=== PATIENT | male | born 1940 | race Caucasian/White ===

== ENCOUNTER → 2016-10-16 | Outpatient (CLI) | payer MEDICARE | END | disposition home or self-care (01) | LOC: CVU 12:52 | PROVIDERS: ATTEND Family Medicine | DX: I74.8 Embolism and thrombosis of other arteries (principal); M79.662 Pain in left lower leg; M79.661 Pain in right lower leg; Z85.51 Personal history of malignant neoplasm of bladder; Z95.5 Presence of coronary angioplasty implant and graft | CPT/HCPCS: 93922; 93925 ==

== ENCOUNTER 2016-10-30 21:37 | Inpatient (IN) | payer MEDICARE ==
[~2016-10-30] VITALS: Ht 175.3 cm; Wt 77.3 kg
[2016-10-30 22:31] LABS: BLOOD UREA NITROGEN 32 mg/dL (7-18)
[2016-10-30] MEDS ORDERED: NITROGLYCERIN SINGLE TAB 0.4 MG SL ONE (22:37)
[2016-10-30 22:38] LABS: IS PT STATUS REG ER OR PRE ER? YES
[2016-10-30] MEDS ORDERED: KYOLIC GARLIC (23:00)
[2016-10-30] MEDS ORDERED: LEVO112T2 PO (23:00)
[2016-10-30] MEDS ORDERED: GINKO (23:00)
[2016-10-30] MEDS ORDERED: RED600CA2 PO (23:00)
[2016-10-30] MEDS ORDERED: [UNRECOGNIZED DRUG - OTHER] (23:00)
[2016-10-30] MEDS ORDERED: ARGI500C PO (23:00)
[2016-10-30] MEDS ORDERED: [UNRECOGNIZED DRUG - OTHER] (23:00)
[2016-10-30] MEDS ORDERED: [UNRECOGNIZED DRUG - OTHER] (23:00)
[2016-10-30] MEDS ORDERED: ASPI-496 PO (23:00)
[2016-10-31] VITALS (7 sets, daily range): BP systolic 142–181; BP diastolic 75–95
[2016-10-31] MEDS ORDERED: MORPHINE SULFATE 4 MG/ML, 1ML IVPush PRN
[2016-10-31] MEDS ORDERED: morphine SULFATE 10 MG/ML, 1ML IVPush PRN (00:30)
[2016-10-31] MEDS ORDERED: NITROGLYCERIN 0.4 MG BOTTLE (25 TABS) SL PRN (00:30)
[2016-10-31] MEDS ORDERED: ONDANSETRON 2MG/ML, 2ML IVPush PRN ×2 (00:30)
[2016-10-31] MEDS: ENOXAPARIN 40 MG/0.4 ML SQ SCH ×2 (01:26→22:59)
[2016-10-31] MEDS: LEVOTHYROXINE 112 MCG TABLET PO SCH (05:26)
[2016-10-31 06:08] LABS: IS PT STATUS REG ER OR PRE ER? NO
[2016-10-31] MEDS: ARGININE 500 MG HOMEMEDPO SCH (09:00)
[2016-10-31] MEDS ORDERED: TEMPLATE NON-FORMULARY MED. (Red Yeast Rice** 600 MG) PO SCH (09:00)
[2016-10-31] MEDS: ASPIRIN 81 MG TABLET EC PO SCH (09:20)
[2016-10-31] MEDS: SODIUM CHLORIDE FLUSH 3ML SYRINGE IVF SCH ×2 (09:21→21:00)
[2016-10-31] MEDS: SODIUM CHLORIDE 0.9% 1,000 ML IV SCH ×2 (09:25→20:00)
[2016-10-31] MEDS ORDERED: DIPHENHYDRAMINE 50 MG/ML, 1ML IVPush ONE (10:30)
[2016-10-31] MEDS ORDERED: methylPREDNISolone SOD SUCC 125 MG/2 ML IVPush ONE (10:30)
[2016-10-31 11:32] LABS: IS PT STATUS REG ER OR PRE ER? NO
[2016-10-31] MEDS ORDERED: FENTANYL PF 100 MCG/2ML ONE (15:10)
[2016-10-31] MEDS ORDERED: HEPARIN 1,000 UNITS/ML, 10ML ONE (15:11)
[2016-10-31] MEDS ORDERED: MIDAZOLAM 1 MG/ML, 5ML ONE (15:11)
[2016-10-31] MEDS ORDERED: VERAPAMIL 2.5 MG/ML, 2ML ONE (15:11)
[2016-10-31] MEDS ORDERED: BIVALIRUDIN 250 MG ONE (15:11)
[2016-10-31] MEDS ORDERED: LIDOCAINE 2%, 20ML ONE (15:11)
[2016-10-31] MEDS ORDERED: TICAGRELOR 90 MG TABLET ONE (15:11)
[2016-10-31] MEDS ORDERED: methylPREDNISolone SOD SUCC 125 MG/2 ML ONE (15:17)
[2016-10-31] MEDS ORDERED: DIPHENHYDRAMINE 50 MG/ML, 1ML ONE (15:17)
[2016-10-31] MEDS ORDERED: ONDANSETRON 2MG/ML, 2ML ONE (15:37)
[2016-11-01 01:43] VITALS: BP 140/84
[2016-11-01] MEDS: SODIUM CHLORIDE 0.9% 1,000 ML IV SCH (05:13)
[2016-11-01] MEDS: LEVOTHYROXINE 112 MCG TABLET PO SCH (05:13)
[2016-11-01 05:49] LABS: BLOOD UREA NITROGEN 20 mg/dL (7-18)
[2016-11-01] MEDS: ASPIRIN 81 MG TABLET EC PO SCH (08:43)
[2016-11-01] MEDS: SODIUM CHLORIDE FLUSH 3ML SYRINGE IVF SCH (08:43)
[2016-11-01] MEDS: ARGININE 500 MG HOMEMEDPO SCH (08:43)
[2016-11-01 08:52] VITALS: BP 155/77
[2016-11-01] MEDS ORDERED: TICAGRELOR 90 MG TABLET PO SCH (11:00)
[2016-11-01] MEDS ORDERED: NITR0.4T SL (11:00)
[2016-11-01] MEDS ORDERED: TICA90TA PO (11:00)
== END 2016-11-01 12:49 | disposition home or self-care (01) | DRG 246 ==
LOC: ED 22:12 → EDIP 23:31 → 5SO 10-31 00:39
PROC: 027034Z Dilation of Coronary Artery, One Artery with Drug-eluting Intraluminal Device, Percutaneous Approach (ICD-10-PCS; principal; 2016-10-30)
PROC: 4A023N7 Measurement of Cardiac Sampling and Pressure, Left Heart, Percutaneous Approach (ICD-10-PCS; 2016-10-30)
PROC: B2111ZZ Fluoroscopy of Multiple Coronary Arteries using Low Osmolar Contrast (ICD-10-PCS; 2016-10-30)
DX: I24.9 Acute ischemic heart disease, unspecified (principal); I21.4 Non-ST elevation (NSTEMI) myocardial infarction; I25.10 Atherosclerotic heart disease of native coronary artery without angina pectoris; E78.5 Hyperlipidemia, unspecified; E89.0 Postprocedural hypothyroidism; I10 Essential (primary) hypertension; I73.9 Peripheral vascular disease, unspecified; Y83.8 Other surgical procedures as the cause of abnormal reaction of the patient, or of later complication, without mention of misadventure at the time of the procedure; Z79.82 Long term (current) use of aspirin; I25.2 Old myocardial infarction; Z82.3 Family history of stroke; Z90.49 Acquired absence of other specified parts of digestive tract; Z85.51 Personal history of malignant neoplasm of bladder; Z88.8 Allergy status to other drugs, medicaments and biological substances
CPT/HCPCS: 36415; 71010; 80048; 80061; 82040; 83036; 83880; 84443; 84484; 85025; 85610; 93005; 93306; 93458; 99285; C1894; C9600; J0583; J1644; J1650; J2250; J2405; J3010; J3490; C1725; C1769; C1874; C1887; J1200; J2270; J2930; J7030; Q9967

== ENCOUNTER 2016-11-03 18:58 | Inpatient (IN) | payer MEDICARE ==
[~2016-11-03] VITALS: Ht 175.3 cm; Wt 75.6 kg
[~2016-11-03 18:58] MED LIST: ARGI500C PO; ASPI-496 PO; GINKO; KYOLIC GARLIC; LEVO112T2 PO; NITR0.4T SL; RED600CA2 PO; TICA90TA PO; [UNRECOGNIZED DRUG - OTHER]; [UNRECOGNIZED DRUG - OTHER]; [UNRECOGNIZED DRUG - OTHER]
[2016-11-03] MEDS ORDERED: SODIUM CHLORIDE 0.9% 1,000 ML IV ONE (19:09)
[2016-11-03] MEDS ORDERED: SODIUM CHLORIDE FLUSH 10ML SYR IVF ONE (19:30)
[2016-11-03] MEDS ORDERED: ASPIRIN 81 MG TABLET CHEW PO ONE (19:30)
[2016-11-03] MEDS ORDERED: ASPIRIN 81 MG TABLET CHEW ONE (19:33)
[2016-11-03 19:51] LABS: BLOOD UREA NITROGEN 25 mg/dL (7-18)
[2016-11-03 19:58] LABS: IS PT STATUS REG ER OR PRE ER? YES
[2016-11-03 22:45] LABS: IS PT STATUS REG ER OR PRE ER? NO
[2016-11-03] MEDS ORDERED: KETOROLAC 60 MG/2 ML IVPush ONE (23:30)
[2016-11-04] MEDS ORDERED: ACETAMINOPHEN 325 MG TABLET PO PRN
[2016-11-04] MEDS ORDERED: NITROGLYCERIN 0.4 MG BOTTLE (25 TABS) SL PRN
[2016-11-04] MEDS ORDERED: BISACODYL 10 MG SUPP PR PRN
[2016-11-04] MEDS ORDERED: DOCUSATE 100 MG CAPSULE PO PRN
[2016-11-04] MEDS ORDERED: ENOXAPARIN 40 MG/0.4 ML SQ SCH
[2016-11-04] MEDS ORDERED: CLOPIDOGREL 75 MG TABLET PO ONE
[2016-11-04] MEDS ORDERED: KETOROLAC 30 MG/1 ML IVPush PRN
[2016-11-04] MEDS ORDERED: POLYETHYLENE GLYCOL 17 GM PACKET PO PRN
[2016-11-04] MEDS ORDERED: ONDANSETRON 2MG/ML, 2ML IVPush PRN
[2016-11-04] MEDS ORDERED: KETOROLAC 30 MG/1 ML ONE (00:04)
[2016-11-04] MEDS ORDERED: CLOP75TA22 PO (00:13)
[2016-11-04 01:11] VITALS: BP 178/94
[2016-11-04 03:59] VITALS: BP 163/84
[2016-11-04] MEDS ORDERED: NEBIVOLOL HCL 5 MG TABLET PO STA (05:07)
[2016-11-04 05:45] LABS: IS PT STATUS REG ER OR PRE ER? NO
[2016-11-04] MEDS: LEVOTHYROXINE 112 MCG TABLET PO SCH (05:52)
[2016-11-04 06:31] VITALS: BP 158/87
[2016-11-04] MEDS ORDERED: CLON0.5T20 PO (07:01)
[2016-11-04] MEDS ORDERED: NEBI5TAB2 PO (07:56)
[2016-11-04] MEDS ORDERED: SODIUM CHLORIDE 0.9% 1,000 ML IV SCH ×2 (08:07→14:52)
[2016-11-04] MEDS: SODIUM CHLORIDE FLUSH 3ML SYRINGE IVF SCH ×2 (09:00→21:00)
[2016-11-04] MEDS ORDERED: CLOPIDOGREL 75 MG TABLET PO SCH ×2 (09:00→21:00)
[2016-11-04] MEDS: ASPIRIN 81 MG TABLET EC PO SCH (09:18)
[2016-11-04 11:20] LABS: IS PT STATUS REG ER OR PRE ER? NO
[2016-11-04 13:08] VITALS: BP 173/90
[2016-11-04] MEDS ORDERED: FENTANYL PF 100 MCG/2ML ONE (14:24)
[2016-11-04] MEDS ORDERED: HEPARIN 1,000 UNITS/ML, 10ML ONE (14:24)
[2016-11-04] MEDS ORDERED: BIVALIRUDIN 250 MG ONE (14:24)
[2016-11-04] MEDS ORDERED: VERAPAMIL 2.5 MG/ML, 2ML ONE (14:24)
[2016-11-04] MEDS ORDERED: LIDOCAINE 2%, 20ML ONE (14:24)
[2016-11-04] MEDS ORDERED: MIDAZOLAM 1 MG/ML, 5ML ONE (14:24)
[2016-11-04] MEDS ORDERED: methylPREDNISolone SOD SUCC 125 MG/2 ML ONE (14:25)
[2016-11-04] MEDS ORDERED: DIPHENHYDRAMINE 50 MG/ML, 1ML ONE (14:25)
[2016-11-04 19:47] VITALS: BP 161/89
[2016-11-05 06:06] VITALS: BP 151/84
[2016-11-05] MEDS: LEVOTHYROXINE 112 MCG TABLET PO SCH (06:09)
[2016-11-05] MEDS: ASPIRIN 81 MG TABLET EC PO SCH (08:11)
[2016-11-05] MEDS: SODIUM CHLORIDE FLUSH 3ML SYRINGE IVF SCH (08:11)
== END 2016-11-05 10:36 | disposition home or self-care (01) | DRG 287 ==
LOC: ED 23:17 → INTOOBSV 23:18 → EDIP 23:18 → ED 23:34 → 5SO 11-04 00:59 → OBSVTOIN 11-04 15:35
PROVIDERS: ADMIT Internal Medicine; ATTEND Internal Medicine
PROC: 4A023N7 Measurement of Cardiac Sampling and Pressure, Left Heart, Percutaneous Approach (ICD-10-PCS; principal; 2016-11-04)
PROC: B2111ZZ Fluoroscopy of Multiple Coronary Arteries using Low Osmolar Contrast (ICD-10-PCS; 2016-11-04)
PROC: B2151ZZ Fluoroscopy of Left Heart using Low Osmolar Contrast (ICD-10-PCS; 2016-11-04)
DX: I25.10 Atherosclerotic heart disease of native coronary artery without angina pectoris (principal); R07.89 Other chest pain; I10 Essential (primary) hypertension; I73.9 Peripheral vascular disease, unspecified; I25.82 Chronic total occlusion of coronary artery; E89.0 Postprocedural hypothyroidism; E78.5 Hyperlipidemia, unspecified; Z85.51 Personal history of malignant neoplasm of bladder; I25.2 Old myocardial infarction; Z95.5 Presence of coronary angioplasty implant and graft; Z82.3 Family history of stroke; Z87.891 Personal history of nicotine dependence; Z85.46 Personal history of malignant neoplasm of prostate
CPT/HCPCS: 36415; 71010; 80048; 82040; 83880; 84484; 85025; 93005; 93306; 93458; 96361; 96374; C1894; G0378; J0583; J1644; J1650; J1885; J2250; J3010; J3490; J1200; J2930; J7030; Q9967

== ENCOUNTER → 2016-11-25 | Outpatient (CLI) | payer MEDICARE ==
[~2016-11-25] MED LIST changes: +CLON0.5T20 PO; +CLOP75TA22 PO; +NEBI5TAB2 PO
== END | disposition home or self-care (01) ==
LOC: RAD 15:13
PROVIDERS: ATTEND Family Medicine
DX: R07.9 Chest pain, unspecified (principal)
CPT/HCPCS: 71020

== ENCOUNTER → 2016-12-04 | Outpatient (CLI) | payer MEDICARE | END | disposition home or self-care (01) | LOC: LAB 08:56 | PROVIDERS: ATTEND Family Medicine | DX: E03.9 Hypothyroidism, unspecified (principal) | CPT/HCPCS: 36415; 84436; 84443 ==

== ENCOUNTER → 2017-01-02 | Outpatient (CLI) | payer MEDICARE | END | disposition home or self-care (01) | LOC: LAB 09:18 | PROVIDERS: ATTEND Family Medicine | DX: E03.9 Hypothyroidism, unspecified (principal); E78.2 Mixed hyperlipidemia; I10 Essential (primary) hypertension; I25.10 Atherosclerotic heart disease of native coronary artery without angina pectoris | CPT/HCPCS: 36415; 80061; 80076; 84436; 84443 ==

== ENCOUNTER → 2017-01-07 | Outpatient (CLI) | payer MEDICARE ==
[2017-01-07 16:46] LABS: ASPARTATE AMINO TRANSFERASE 30 U/L (15-37); BLOOD UREA NITROGEN 24 mg/dL (7-18)
== END | disposition home or self-care (01) ==
LOC: LAB 16:01
PROVIDERS: ATTEND Family Medicine
DX: I10 Essential (primary) hypertension (principal)
CPT/HCPCS: 36415; 80053; 85025

== ENCOUNTER → 2017-01-22 | Outpatient (CLI) | payer MEDICARE | END | disposition home or self-care (01) | LOC: CVU 08:28 | PROVIDERS: ATTEND Family Medicine | DX: N28.1 Cyst of kidney, acquired (principal); I77.819 Aortic ectasia, unspecified site; I10 Essential (primary) hypertension; E78.5 Hyperlipidemia, unspecified; I73.9 Peripheral vascular disease, unspecified | CPT/HCPCS: 93975 ==

== ENCOUNTER → 2017-05-19 | Outpatient (CLI) | payer MEDICARE ==
[~2017-05-19] MED LIST changes: -ARGI500C PO; +ARGI500C7 PO; -CLOP75TA22 PO; +CLOP75TA52 PO; +OMNIPAQUE 350 MG/ML, 100ML BOTTLE ONE
== END | disposition home or self-care (01) ==
LOC: RAD 12:29
PROVIDERS: ATTEND Family Medicine
DX: C67.9 Malignant neoplasm of bladder, unspecified (principal); J84.10 Pulmonary fibrosis, unspecified; K76.89 Other specified diseases of liver; N13.39 Other hydronephrosis; I72.3 Aneurysm of iliac artery; M47.896 Other spondylosis, lumbar region; M51.36 Other intervertebral disc degeneration, lumbar region; I70.0 Atherosclerosis of aorta; N28.1 Cyst of kidney, acquired; D73.89 Other diseases of spleen
CPT/HCPCS: 36415; 74177; 82565; 84436; 84443; Q9967

== ENCOUNTER → 2017-07-06 | Outpatient (CLI) | payer MEDICARE ==
[~2017-07-06] MED LIST changes: -OMNIPAQUE 350 MG/ML, 100ML BOTTLE ONE
== END | disposition home or self-care (01) ==
LOC: CVU 13:10
PROVIDERS: ATTEND Internal Medicine Cardiovascular Disease
DX: I70.203 Unspecified atherosclerosis of native arteries of extremities, bilateral legs (principal); I25.10 Atherosclerotic heart disease of native coronary artery without angina pectoris; I10 Essential (primary) hypertension; C67.9 Malignant neoplasm of bladder, unspecified
CPT/HCPCS: 93922; 93925

== ENCOUNTER → 2017-09-02 | Outpatient (CLI) | payer MEDICARE | LOC: RAD 16:15 | PROVIDERS: ATTEND Urology | DX: N13.30 Unspecified hydronephrosis (principal); I31.3 Pericardial effusion (noninflammatory); C67.2 Malignant neoplasm of lateral wall of bladder | CPT/HCPCS: 74176 ==

== ENCOUNTER → 2017-09-14 | Outpatient (CLI) | payer MEDICARE | END | disposition home or self-care (01) | LOC: CFH 10:26 | PROVIDERS: ATTEND Family Medicine | DX: N13.30 Unspecified hydronephrosis (principal); C67.2 Malignant neoplasm of lateral wall of bladder | CPT/HCPCS: 76770 ==

== ENCOUNTER 2017-11-10 22:36 | Emergency (ER) | payer MEDICARE ==
[~2017-11-10] VITALS: Ht 175.3 cm; Wt 65.3 kg
[2017-11-10] MEDS ORDERED: SODIUM CHLORIDE FLUSH 10ML SYR IVF ONE (23:00)
[2017-11-10] MEDS ORDERED: ASPIRIN 81 MG TABLET CHEW PO ONE (23:00)
[2017-11-10 23:16] LABS: BASOPHILS # (AUTO) 0.01 x10^3/uL (0-0.1); BASOPHILS % (AUTO) 0 % (0-1); EOSINOPHILS # (AUTO) 0.81 x10^3/uL (0-0.4); EOSINOPHILS % (AUTO) 9 % (1-7); LYMPHOCYTES # (AUTO) 1.13 x10^3/uL (1-3.4); LYMPHOCYTES % (AUTO) 13 % (22-44); MD NO; MEAN CORPUSCULAR HEMOGLOBIN 32.7 pg (27.5-34.5); MEAN CORPUSCULAR HGB CONC 34.2 g/dL (33.2-36.2); MEAN CORPUSCULAR VOLUME 95.6 fL (81-97); MEAN PLATELET VOLUME 7.5 fL (7.4-10.4); MONOCYTES # (AUTO) 0.98 x10^3/uL (0.2-0.8); MONOCYTES % (AUTO) 11 % (2-9); NEUTROPHILS % (AUTO) 66 % (42-75); PLATELET COUNT 341 x10^3/uL (130-400); RED BLOOD COUNT 3.08 x10^6/uL (4.38-5.82); RED CELL DISTRIBUTION WIDTH 12.4 % (9.4-14.8)
[2017-11-10] MEDS ORDERED: ASPIRIN 81 MG TABLET CHEW ONE (23:27)
[2017-11-10 23:29] LABS: ALBUMIN 3.1 g/dL (3.4-5.0); ANION GAP 6 mmol/L (5-15); CALCIUM 8.8 mg/dL (8.5-10.1); CHLORIDE 104 mmol/L (98-107); CREATININE 2.11 mg/dL (0.7-1.3)
[2017-11-10 23:33] LABS: TROPONIN I < 0.015 ng/mL (0.000-0.045)
[2017-11-11 00:08] VITALS: BP 146/62
== END 2017-11-11 00:10 | disposition home or self-care (01) ==
LOC: ED 23:00
DX: R07.89 Other chest pain (principal); D64.9 Anemia, unspecified; R94.4 Abnormal results of kidney function studies; I25.10 Atherosclerotic heart disease of native coronary artery without angina pectoris; I25.2 Old myocardial infarction; I73.9 Peripheral vascular disease, unspecified; I11.9 Hypertensive heart disease without heart failure; Z95.5 Presence of coronary angioplasty implant and graft; Z85.46 Personal history of malignant neoplasm of prostate; Z85.51 Personal history of malignant neoplasm of bladder
CPT/HCPCS: 36415; 71045; 80048; 82040; 83880; 84484; 85025; 93005; 99285

== ENCOUNTER 2017-12-02 10:08 | Day surgery (SDC) | payer MEDICARE ==
[~2017-12-02] VITALS: Ht 175.3 cm; Wt 63.9 kg
[2017-12-02] MEDS ORDERED: SODIUM CHLORIDE 0.9% 1,000 ML IV SCH (10:53)
[2017-12-02 10:54] VITALS: BP 159/87
[2017-12-02] MEDS ORDERED: FENTANYL PF 100 MCG/2ML ONE (11:22)
[2017-12-02] MEDS ORDERED: FLUMAZENIL 0.1 MG/1 ML, 5ML ONE (11:22)
[2017-12-02] MEDS ORDERED: MIDAZOLAM 1 MG/ML, 5ML ONE (11:22)
[2017-12-02] MEDS ORDERED: NALOXONE 1 MG/ML, 2ML ONE (11:22)
[2017-12-02] MEDS ORDERED: LIDOCAINE-MPF 2% ,5ML ONE (12:32)
== END 2017-12-02 14:45 | disposition home or self-care (01) ==
LOC: OUT 10:08
PROVIDERS: ATTEND Urology
DX: C61 Malignant neoplasm of prostate (principal); C67.9 Malignant neoplasm of bladder, unspecified; N13.5 Crossing vessel and stricture of ureter without hydronephrosis; Z87.440 Personal history of urinary (tract) infections; Z87.891 Personal history of nicotine dependence; Z88.6 Allergy status to analgesic agent; Z98.890 Other specified postprocedural states; I10 Essential (primary) hypertension; Z88.8 Allergy status to other drugs, medicaments and biological substances
CPT/HCPCS: 50435; 99156; 99157; C1729; C1769; J2250; J3010; J3490; J7030; J2310

== ENCOUNTER 2017-12-18 23:45 | Emergency (ER) | payer MEDICARE ==
[~2017-12-18] VITALS: Ht 175.3 cm; Wt 66.0 kg
[2017-12-18 23:49] VITALS: BP 207/110
[2017-12-19 01:08] LABS: CULTURE INDICATED? YES; MICROSCOPIC INDICATED
[2017-12-19] MEDS ORDERED: CEFTRIAXONE 1,000 MG IM ONE (01:30)
[2017-12-19] MEDS ORDERED: CEFTRIAXONE 1,000 MG ONE (01:33)
[2017-12-19] MEDS ORDERED: LIDOCAINE-MPF 2% ,5ML ONE (01:34)
== END 2017-12-19 01:49 | disposition home or self-care (01) ==
LOC: ED 12-19 01:05
DX: N30.01 Acute cystitis with hematuria (principal); I25.10 Atherosclerotic heart disease of native coronary artery without angina pectoris; I10 Essential (primary) hypertension; C79.82 Secondary malignant neoplasm of genital organs; C67.9 Malignant neoplasm of bladder, unspecified
CPT/HCPCS: 81001; 87077; 87086; 87186; 96372; 99284; J0696

== ENCOUNTER 2018-01-18 12:30 | Day surgery (SDC) | payer MEDICARE ==
[~2018-01-18] VITALS: Ht 175.3 cm; Wt 65.0 kg
[2018-01-18 13:07] VITALS: BP 173/99
[2018-01-18] MEDS ORDERED: DEGA80VI3 IM (13:11)
[2018-01-18] MEDS ORDERED: LIDOCAINE-MPF 2%, 2ML ONE (13:26)
[2018-01-18] MEDS ORDERED: FLUMAZENIL 0.1 MG/1 ML, 5ML ONE (13:27)
[2018-01-18] MEDS ORDERED: MIDAZOLAM 1 MG/ML, 5ML ONE (13:27)
[2018-01-18] MEDS ORDERED: NALOXONE 1 MG/ML, 2ML ONE (13:27)
[2018-01-18] MEDS ORDERED: FENTANYL PF 100 MCG/2ML ONE (13:27)
[2018-01-18] MEDS ORDERED: VISIPAQUE 270 MG/ML, 50ML BOTTLE ONE (14:45)
== END 2018-01-18 16:05 | disposition home or self-care (01) ==
LOC: OUT 12:30
PROVIDERS: ATTEND Urology
DX: N13.30 Unspecified hydronephrosis (principal); C61 Malignant neoplasm of prostate; I12.9 Hypertensive chronic kidney disease with stage 1 through stage 4 chronic kidney disease, or unspecified chronic kidney disease; N18.9 Chronic kidney disease, unspecified; E03.9 Hypothyroidism, unspecified; E78.00 Pure hypercholesterolemia, unspecified; F41.9 Anxiety disorder, unspecified; J30.9 Allergic rhinitis, unspecified; Z88.8 Allergy status to other drugs, medicaments and biological substances; Z91.041 Radiographic dye allergy status; Z79.899 Other long term (current) drug therapy; Z98.890 Other specified postprocedural states; Z85.51 Personal history of malignant neoplasm of bladder; Z87.891 Personal history of nicotine dependence
CPT/HCPCS: 50435; 99156; 99157; C1729; C1751; C1769; J2250; J3010; J3490; Q9966; J2310

== ENCOUNTER 2018-01-18 19:59 | Emergency (ER) | payer MEDICARE ==
[~2018-01-18 19:59] MED LIST changes: +DEGA80VI3 IM
[2018-01-18 20:13] VITALS: BP 180/106
[2018-01-18] MEDS ORDERED: ACETAMINOPHEN 325 MG TABLET PO ONE (21:00)
[2018-01-18] MEDS ORDERED: SODIUM CHLORIDE 0.9% 1,000ML IVBOLUS ONE (21:00)
[2018-01-18] MEDS ORDERED: PLEASE ENTER WEIGHT MC SCH (21:30)
== END 2018-01-18 21:25 | disposition left against medical advice (07) ==
LOC: ED 20:50
DX: R50.9 Fever, unspecified (principal); M54.9 Dorsalgia, unspecified; R10.9 Unspecified abdominal pain; Z93.6 Other artificial openings of urinary tract status; Z85.46 Personal history of malignant neoplasm of prostate; Z85.51 Personal history of malignant neoplasm of bladder
CPT/HCPCS: 99281

== ENCOUNTER → 2018-02-05 | Outpatient (CLI) | payer MEDICARE ==
[~2018-02-05] MED LIST changes: +ASPI-621 PO; +CLON0.1T PO; +CLOP75TA PO; +NITR0.4T28 SL; +VISIPAQUE 270 MG/ML, 50ML BOTTLE ONE
== END | disposition home or self-care (01) ==
LOC: RAD 07:02
PROVIDERS: ATTEND Urology
DX: N13.30 Unspecified hydronephrosis (principal); N13.9 Obstructive and reflux uropathy, unspecified; C61 Malignant neoplasm of prostate; Z85.51 Personal history of malignant neoplasm of bladder; Z87.891 Personal history of nicotine dependence
CPT/HCPCS: 74425; Q9966

== ENCOUNTER 2018-03-01 20:38 | Inpatient (IN) | payer MEDICARE ==
[~2018-03-01] VITALS: Ht 175.3 cm; Wt 68.8 kg
[~2018-03-01 20:38] MED LIST changes: -ASPI-621 PO; -CLON0.1T PO; -CLOP75TA PO; -NITR0.4T28 SL; -VISIPAQUE 270 MG/ML, 50ML BOTTLE ONE
[2018-03-01] MEDS ORDERED: MORPHINE SULFATE 4 MG/ML, 1ML ONE ×2 (20:45→21:07)
[2018-03-01] MEDS: MORPHINE SULFATE 4 MG/ML, 1ML IVPush PRN ×2 (20:48→20:59)
[2018-03-01 21:00] LABS: BASOPHILS # (AUTO) 0.05 x10^3/uL (0-0.1); BASOPHILS % (AUTO) 1 % (0-1); EOSINOPHILS # (AUTO) 0.63 x10^3/uL (0-0.4); EOSINOPHILS % (AUTO) 7 % (1-7); LYMPHOCYTES # (AUTO) 3.34 x10^3/uL (1-3.4); LYMPHOCYTES % (AUTO) 35 % (22-44); MD NO; MEAN CORPUSCULAR HEMOGLOBIN 31.9 pg (27.5-34.5); MEAN CORPUSCULAR HGB CONC 34.5 g/dL (33.2-36.2); MEAN CORPUSCULAR VOLUME 92.5 fL (81-97); MEAN PLATELET VOLUME 8.6 fL (7.4-10.4); MONOCYTES # (AUTO) 0.95 x10^3/uL (0.2-0.8); MONOCYTES % (AUTO) 10 % (2-9); NEUTROPHILS % (AUTO) 48 % (42-75); PLATELET COUNT 258 x10^3/uL (130-400); RED BLOOD COUNT 3.98 x10^6/uL (4.38-5.82); RED CELL DISTRIBUTION WIDTH 12.6 % (9.4-14.8)
[2018-03-01] MEDS ORDERED: ONDANSETRON 2MG/ML, 2ML IVPush ONE (21:00)
[2018-03-01] MEDS ORDERED: SODIUM CHLORIDE FLUSH 10ML SYR IVF ONE (21:00)
[2018-03-01] MEDS ORDERED: FENTANYL PF 100 MCG/2ML ONE (21:09)
[2018-03-01] MEDS ORDERED: TICAGRELOR 90 MG TABLET ONE (21:09)
[2018-03-01] MEDS ORDERED: BIVALIRUDIN 250 MG ONE (21:09)
[2018-03-01] MEDS ORDERED: VERAPAMIL 2.5 MG/ML, 2ML ONE (21:09)
[2018-03-01 21:10] LABS: INTERNATIONAL NORMALIZED RATIO 1.02 (0.93-1.1); PROTHROMBIN TIME 10.6 Seconds (9.6-11.5)
[2018-03-01] MEDS ORDERED: MIDAZOLAM 1 MG/ML, 2ML ONE (21:10)
[2018-03-01] MEDS ORDERED: LIDOCAINE-MPF 2% ,5ML ONE (21:10)
[2018-03-01] MEDS ORDERED: HEPARIN 1,000 UNITS/ML, 10ML ONE (21:10)
[2018-03-01 21:13] LABS: ALBUMIN 3.4 g/dL (3.4-5.0); ANION GAP 7 mmol/L (5-15); CALCIUM 9.2 mg/dL (8.5-10.1); CHLORIDE 107 mmol/L (98-107); CREATININE 2.14 mg/dL (0.7-1.3)
[2018-03-01 21:17] LABS: TROPONIN I < 0.015 ng/mL (0.000-0.045)
[2018-03-01] MEDS ORDERED: DIPHENHYDRAMINE 50 MG/ML, 1ML ONE (21:21)
[2018-03-01] MEDS ORDERED: methylPREDNISolone SOD SUCC 125 MG/2 ML ONE (21:21)
[2018-03-01] MEDS ORDERED: ONDANSETRON 2MG/ML, 2ML ONE (21:24)
[2018-03-01] MEDS ORDERED: CLOPIDOGREL 300 MG TABLET ONE ×2 (21:26→22:19)
[2018-03-01] MEDS ORDERED: SODIUM CHLORIDE FLUSH 10ML SYR IVF PRN (21:30)
[2018-03-01] MEDS ORDERED: BIVALIRUDIN 250 MG in DEXTROSE 5% 50 ML IV SCH (21:57)
[2018-03-01] MEDS ORDERED: MORPHINE SULFATE 4 MG/ML, 1ML IVPush PRN (22:30)
[2018-03-01] MEDS: SODIUM CHLORIDE 0.9% 1,000 ML IV SCH (23:05)
[2018-03-01] MEDS: METOPROLOL SUCCINATE 25 MG TAB.ER.24H PO SCH (23:05)
[2018-03-01] MEDS: ATORVASTATIN 80 MG TABLET PO SCH (23:05)
[2018-03-02 03:52] VITALS: BP 155/80
[2018-03-02] MEDS: SODIUM CHLORIDE 0.9% 1,000 ML IV SCH (03:53)
[2018-03-02 04:42] LABS: ALBUMIN 3.2 g/dL (3.4-5.0); ANION GAP 3 mmol/L (5-15); CALCIUM 8.4 mg/dL (8.5-10.1); CHLORIDE 108 mmol/L (98-107); CREATININE 1.85 mg/dL (0.7-1.3)
[2018-03-02] MEDS: METOPROLOL SUCCINATE 25 MG TAB.ER.24H PO SCH (05:36)
[2018-03-02] MEDS: LEVOTHYROXINE 112 MCG TABLET PO SCH (05:37)
[2018-03-02] MEDS: ASPIRIN 81 MG TABLET EC PO SCH (10:38)
[2018-03-02] MEDS: CLOPIDOGREL 75 MG TABLET PO SCH (10:38)
[2018-03-02] MEDS ORDERED: NITROGLYCERIN 0.4 MG BOTTLE (25 TABS) SL ONE (12:49)
[2018-03-02 14:37] VITALS: BP 148/80
[2018-03-02 19:01] VITALS: BP 127/71
[2018-03-02] MEDS: ATORVASTATIN 80 MG TABLET PO SCH (20:31)
[2018-03-02] MEDS: CEFDINIR 300 MG CAPSULE PO SCH (20:32)
[2018-03-03] VITALS (7 sets, daily range): BP systolic 117–182; BP diastolic 64–107
[2018-03-03] MEDS: LEVOTHYROXINE 112 MCG TABLET PO SCH (05:07)
[2018-03-03] MEDS: METOPROLOL SUCCINATE 25 MG TAB.ER.24H PO SCH (05:07)
[2018-03-03] MEDS: CEFDINIR 300 MG CAPSULE PO SCH ×2 (09:32→20:40)
[2018-03-03] MEDS: CLOPIDOGREL 75 MG TABLET PO SCH (09:32)
[2018-03-03] MEDS: ASPIRIN 81 MG TABLET EC PO SCH (09:32)
[2018-03-03] MEDS: LOSARTAN 25MG TABLET PO SCH (11:43)
[2018-03-03] MEDS ORDERED: CLON0.5T20 PO (15:26)
[2018-03-03] MEDS: ATORVASTATIN 80 MG TABLET PO SCH (20:39)
[2018-03-03] MEDS ORDERED: LOSARTAN 25MG TABLET PO ONE (22:00)
[2018-03-04 00:22] VITALS: BP 152/88
[2018-03-04] MEDS: LEVOTHYROXINE 112 MCG TABLET PO SCH (05:06)
[2018-03-04] MEDS: METOPROLOL SUCCINATE 25 MG TAB.ER.24H PO SCH (05:07)
[2018-03-04] MEDS ORDERED: CLON0.1T PO (05:11)
[2018-03-04] MEDS ORDERED: NEBI5TAB2 PO ×2 (05:14→10:09)
[2018-03-04 07:29] VITALS: BP 173/100
[2018-03-04] MEDS: LOSARTAN 25MG TABLET PO SCH (08:29)
[2018-03-04] MEDS ORDERED: NITR0.4T28 SL (08:29)
[2018-03-04] MEDS: CEFDINIR 300 MG CAPSULE PO SCH (08:34)
[2018-03-04] MEDS: ASPIRIN 81 MG TABLET EC PO SCH (08:34)
[2018-03-04] MEDS: CLOPIDOGREL 75 MG TABLET PO SCH (08:34)
[2018-03-04] MEDS ORDERED: ASPI-621 PO (10:09)
[2018-03-04] MEDS ORDERED: CLOP75TA PO (10:09)
[2018-03-04 10:51] VITALS: BP 166/97
[2018-03-04 11:32] VITALS: BP 147/92
== END 2018-03-04 12:06 | disposition home or self-care (01) | DRG 248 ==
LOC: ED 21:00 → EDIP 21:12 → CCU 22:11 → 5SO 03-02 14:22 → DCLOUNGE 03-04 11:39
PROVIDERS: ADMIT Internal Medicine Cardiovascular Disease; ATTEND Internal Medicine Cardiovascular Disease
PROC: 02703DZ Dilation of Coronary Artery, One Artery with Intraluminal Device, Percutaneous Approach (ICD-10-PCS; principal; 2018-03-01)
PROC: 4A023N7 Measurement of Cardiac Sampling and Pressure, Left Heart, Percutaneous Approach (ICD-10-PCS; 2018-03-01)
PROC: B2151ZZ Fluoroscopy of Left Heart using Low Osmolar Contrast (ICD-10-PCS; 2018-03-01)
PROC: B2101ZZ Fluoroscopy of Single Coronary Artery using Low Osmolar Contrast (ICD-10-PCS; 2018-03-01)
DX: T82.867A Thrombosis due to cardiac prosthetic devices, implants and grafts, initial encounter (principal); I21.09 ST elevation (STEMI) myocardial infarction involving other coronary artery of anterior wall; C79.51 Secondary malignant neoplasm of bone; I12.9 Hypertensive chronic kidney disease with stage 1 through stage 4 chronic kidney disease, or unspecified chronic kidney disease; N18.9 Chronic kidney disease, unspecified; E78.5 Hyperlipidemia, unspecified; I25.10 Atherosclerotic heart disease of native coronary artery without angina pectoris; E89.0 Postprocedural hypothyroidism; C61 Malignant neoplasm of prostate; I25.5 Ischemic cardiomyopathy; I73.9 Peripheral vascular disease, unspecified; N30.90 Cystitis, unspecified without hematuria; Y83.1 Surgical operation with implant of artificial internal device as the cause of abnormal reaction of the patient, or of later complication, without mention of misadventure at the time of the procedure; Z82.3 Family history of stroke; Z79.02 Long term (current) use of antithrombotics/antiplatelets; I25.2 Old myocardial infarction; Z85.51 Personal history of malignant neoplasm of bladder; Z87.891 Personal history of nicotine dependence; Z91.041 Radiographic dye allergy status; Z91.14 Patient's other noncompliance with medication regimen; Z79.82 Long term (current) use of aspirin; Z90.49 Acquired absence of other specified parts of digestive tract; Z82.49 Family history of ischemic heart disease and other diseases of the circulatory system; Z88.8 Allergy status to other drugs, medicaments and biological substances; Y92.89 Other specified places as the place of occurrence of the external cause; Z93.6 Other artificial openings of urinary tract status
CPT/HCPCS: 36415; 71045; 80047; 80048; 82040; 84484; 85014; 85018; 85025; 85610; 85730; 87081; 93005; 93306; 93458; 96374; 99156; 99157; C1769; C1876; C1894; G0378; J0583; J1644; J2250; J2405; J3010; J3490; C1725; C1887; J1200; J2930; J7030; Q9967

== ENCOUNTER 2018-03-17 07:44 | Day surgery (SDC) | payer MEDICARE ==
[~2018-03-17] VITALS: Ht 175.3 cm; Wt 67.5 kg
[~2018-03-17 07:44] MED LIST changes: +ASPI-621 PO; +CLON0.1T PO; +CLOP75TA PO; -NEBI5TAB2 PO; +NEBI5TAB3 PO; +NITR0.4T28 SL
[2018-03-17] MEDS ORDERED: SODIUM CHLORIDE 0.9% 1,000 ML IV SCH (08:23)
[2018-03-17] MEDS ORDERED: PLEASE ENTER HEIGHT AND WEIGHT MC SCH (08:30)
[2018-03-17] MEDS ORDERED: CIPROFLOXACIN/PMX 400MG/200ML 200 ML IVPB ONE (08:30)
[2018-03-17 08:47] VITALS: BP 149/82
[2018-03-17] MEDS ORDERED: FENTANYL PF 100 MCG/2ML ONE (09:19)
[2018-03-17] MEDS ORDERED: NALOXONE 1 MG/ML, 2ML ONE (09:19)
[2018-03-17] MEDS ORDERED: MIDAZOLAM 1 MG/ML, 5ML ONE ×2 (09:19)
[2018-03-17] MEDS ORDERED: FLUMAZENIL 0.1 MG/1 ML, 5ML ONE (09:19)
[2018-03-17] MEDS ORDERED: ACETAMINOPHEN 325 MG TABLET PO ONE (12:30)
[2018-03-18] MEDS ORDERED: NEBI5TAB3 PO (08:30)
== END 2018-03-17 12:30 | disposition home or self-care (01) ==
LOC: OUT 07:44
PROVIDERS: ATTEND Urology
DX: N13.5 Crossing vessel and stricture of ureter without hydronephrosis (principal); Z85.46 Personal history of malignant neoplasm of prostate; N13.30 Unspecified hydronephrosis; I10 Essential (primary) hypertension; I25.2 Old myocardial infarction; Z88.8 Allergy status to other drugs, medicaments and biological substances; Z98.890 Other specified postprocedural states
CPT/HCPCS: 50693; 99156; 99157; J0744; J2250; J3010; J7030; 50694; 50695; J2310

== ENCOUNTER 2018-03-17 15:42 | Emergency (ER) | payer MEDICARE ==
[~2018-03-17] VITALS: Ht 175.3 cm; Wt 67.0 kg
[2018-03-17 15:44] VITALS: BP 189/105
[2018-03-18] MEDS ORDERED: NEBI5TAB3 PO (08:30)
== END 2018-03-17 16:51 | disposition home or self-care (01) ==
LOC: ED 16:41
DX: N99.820 Postprocedural hemorrhage of a genitourinary system organ or structure following a genitourinary system procedure (principal); I11.9 Hypertensive heart disease without heart failure; I25.2 Old myocardial infarction; I25.10 Atherosclerotic heart disease of native coronary artery without angina pectoris; Z85.51 Personal history of malignant neoplasm of bladder; Z85.46 Personal history of malignant neoplasm of prostate
CPT/HCPCS: 99282; 99283

== ENCOUNTER 2018-03-18 05:49 | Inpatient (IN) | payer MEDICARE ==
[~2018-03-18] VITALS: Ht 175.3 cm; Wt 68.0 kg
[2018-03-18] MEDS ORDERED: MORPHINE SULFATE 4 MG/ML, 1ML IVPush PRN (06:30)
[2018-03-18] MEDS ORDERED: SODIUM CHLORIDE FLUSH 10ML SYR IVF ONE (06:30)
[2018-03-18 06:59] LABS: BASOPHILS # (AUTO) 0.03 x10^3/uL (0-0.1); BASOPHILS % (AUTO) 0 % (0-1); EOSINOPHILS % (AUTO) 0 % (1-7); LYMPHOCYTES # (AUTO) 1.24 x10^3/uL (1-3.4); LYMPHOCYTES % (AUTO) 9 % (22-44); MD NO; MEAN CORPUSCULAR HGB CONC 33.6 g/dL (33.2-36.2); MEAN CORPUSCULAR VOLUME 92.3 fL (81-97); MEAN PLATELET VOLUME 8.3 fL (7.4-10.4); MONOCYTES # (AUTO) 1.11 x10^3/uL (0.2-0.8); MONOCYTES % (AUTO) 8 % (2-9); NEUTROPHILS # (AUTO) 11.73 x10^3/uL (1.8-6.8); NEUTROPHILS % (AUTO) 83 % (42-75); PLATELET COUNT 366 x10^3/uL (130-400); RED CELL DISTRIBUTION WIDTH 12.7 % (9.4-14.8)
[2018-03-18 07:10] LABS: ALBUMIN 3.3 g/dL (3.4-5.0); ANION GAP 9 mmol/L (5-15); CALCIUM 8.8 mg/dL (8.5-10.1); CHLORIDE 106 mmol/L (98-107); CREATININE 1.76 mg/dL (0.7-1.3)
[2018-03-18 07:11] LABS: INTERNATIONAL NORMALIZED RATIO 1.09 (0.93-1.1); PROTHROMBIN TIME 11.2 Seconds (9.6-11.5)
[2018-03-18 08:12] LABS: MICROSCOPIC INDICATED
[2018-03-18] MEDS ORDERED: SODIUM CHLORIDE 0.9% 1,000 ML IV ONE (08:16)
[2018-03-18 08:27] LABS: CULTURE INDICATED? YES
[2018-03-18] MEDS ORDERED: CEFTAZIDIME 2,000 MG in DEXTROSE 5% 50 ML IV ONE (08:30)
[2018-03-18] MEDS ORDERED: NEBI5TAB3 PO (08:30)
[2018-03-18] MEDS ORDERED: CEFTAZIDIME PMX 2 GM/50ML 50 ML IV ONE (08:30)
[2018-03-18] MEDS ORDERED: CEFTAZIDIME 2,000 MG in DEXTROSE 5% 50 ML IVPB ONE (08:30)
[2018-03-18] MEDS ORDERED: LIDOCAINE JELLY 2%, 30GM TP ONE (09:00)
[2018-03-18] MEDS ORDERED: LIDOCAINE 2%,20 ML JEL.PF.APP MM ONE (09:03)
[2018-03-18] MEDS: SODIUM CHLORIDE 0.9% 1,000 ML IV SCH ×3 (09:23→20:08)
[2018-03-18] MEDS ORDERED: BISACODYL 10 MG SUPP PR PRN (09:30)
[2018-03-18] MEDS ORDERED: HYDROcodone/APAP 5/325 TABLET PO PRN (09:30)
[2018-03-18] MEDS ORDERED: hydrALAzine 20 MG/ML, 1ML IVPush PRN (09:30)
[2018-03-18] MEDS ORDERED: ONDANSETRON 2MG/ML, 2ML IVPush PRN (09:30)
[2018-03-18] MEDS: HEPARIN 5,000 UNITS/ML, 1ML SQ SCH ×2 (09:30→12:51)
[2018-03-18] MEDS ORDERED: PHARMACY MAY ADJ FOR RENAL FX MC PRN (09:30)
[2018-03-18] MEDS ORDERED: POLYETHYLENE GLYCOL 17 GM PACKET PO PRN (09:30)
[2018-03-18] MEDS ORDERED: DOCUSATE 100 MG CAPSULE PO PRN (09:30)
[2018-03-18] MEDS ORDERED: ONDANSETRON ODT 4 MG PO PRN (09:30)
[2018-03-18] MEDS ORDERED: PHENAZOPYRIDINE 100 MG TABLET PO PRN (09:30)
[2018-03-18] MEDS ORDERED: ACETAMINOPHEN 325 MG TABLET PO PRN (09:30)
[2018-03-18] MEDS ORDERED: CEFTAZIDIME PMX 2 GM/50ML 50 ML IV SCH (09:30)
[2018-03-18] MEDS ORDERED: morphine SULFATE 10 MG/ML, 1ML IVPush PRN (09:30)
[2018-03-18] MEDS ORDERED: PHENAZOPYRIDINE 200 MG TABLET PO ONE (10:00)
[2018-03-18] MEDS ORDERED: CEFTAZIDIME 2,000 MG in DEXTROSE 5% 50 ML IV SCH ×2 (10:46→11:00)
[2018-03-18] MEDS ORDERED: [UNRECOGNIZED DRUG - REMARK] MC SCH (11:00)
[2018-03-18 11:07] VITALS: BP 160/88
[2018-03-18] MEDS: LEVOTHYROXINE 100 MCG TABLET PO SCH (14:00)
[2018-03-18 14:13] VITALS: BP 156/81
[2018-03-18] MEDS: CLOPIDOGREL 75 MG TABLET PO SCH (17:58)
[2018-03-18] MEDS: ASPIRIN 81 MG TABLET EC PO SCH (17:58)
[2018-03-18 20:15] VITALS: BP 165/89
[2018-03-18] MEDS: NEBIVOLOL HCL 5 MG TABLET PO SCH (21:37)
[2018-03-18] MEDS: CEFTAZIDIME 1,000 MG in SODIUM CHLORIDE 0.9% 50 ML IVPB SCH (21:37)
[2018-03-19 00:34] VITALS: BP 152/80
[2018-03-19] MEDS: SODIUM CHLORIDE 0.9% 1,000 ML IV SCH (04:21)
[2018-03-19 05:25] LABS: ANION GAP 10 mmol/L (5-15); CALCIUM 7.9 mg/dL (8.5-10.1); CHLORIDE 112 mmol/L (98-107); CREATININE 1.56 mg/dL (0.7-1.3)
[2018-03-19 05:40] LABS: BASOPHILS # (AUTO) 0.07 x10^3/uL (0-0.1); BASOPHILS % (AUTO) 1 % (0-1); EOSINOPHILS # (AUTO) 0.14 x10^3/uL (0-0.4); EOSINOPHILS % (AUTO) 2 % (1-7); LYMPHOCYTES # (AUTO) 1.92 x10^3/uL (1-3.4); LYMPHOCYTES % (AUTO) 21 % (22-44); MD NO; MEAN CORPUSCULAR HEMOGLOBIN 31.8 pg (27.5-34.5); MEAN CORPUSCULAR HGB CONC 34.1 g/dL (33.2-36.2); MEAN CORPUSCULAR VOLUME 93.3 fL (81-97); MEAN PLATELET VOLUME 8.4 fL (7.4-10.4); MONOCYTES # (AUTO) 1.04 x10^3/uL (0.2-0.8); MONOCYTES % (AUTO) 11 % (2-9); NEUTROPHILS # (AUTO) 5.95 x10^3/uL (1.8-6.8); NEUTROPHILS % (AUTO) 65 % (42-75); PLATELET COUNT 312 x10^3/uL (130-400); RED BLOOD COUNT 3.55 x10^6/uL (4.38-5.82); RED CELL DISTRIBUTION WIDTH 12.7 % (9.4-14.8)
[2018-03-19] MEDS: LEVOTHYROXINE 100 MCG TABLET PO SCH (06:06)
[2018-03-19 07:05] VITALS: BP 170/81
[2018-03-19] MEDS: NEBIVOLOL HCL 5 MG TABLET PO SCH ×2 (07:45→20:28)
[2018-03-19] MEDS: ASPIRIN 81 MG TABLET EC PO SCH ×2 (07:45→09:12)
[2018-03-19] MEDS ORDERED: CLOPIDOGREL 75 MG TABLET PO SCH (09:00)
[2018-03-19] MEDS ORDERED: ASPIRIN 81 MG TABLET EC PO SCH (09:00)
[2018-03-19] MEDS: CEFTAZIDIME 1,000 MG in SODIUM CHLORIDE 0.9% 50 ML IVPB SCH ×2 (10:37→21:43)
[2018-03-19 12:55] VITALS: BP 174/86
[2018-03-19] MEDS: CLOPIDOGREL 75 MG TABLET PO SCH (13:38)
[2018-03-19 15:13] VITALS: BP 159/72
[2018-03-19 20:14] VITALS: BP_SYST 163; BP_DIAS 79; BP_DIAS 81
[2018-03-20 00:54] VITALS: BP 172/91
[2018-03-20 05:14] LABS: BASOPHILS # (AUTO) 0.07 x10^3/uL (0-0.1); BASOPHILS % (AUTO) 1 % (0-1); EOSINOPHILS # (AUTO) 0.23 x10^3/uL (0-0.4); EOSINOPHILS % (AUTO) 2 % (1-7); LYMPHOCYTES # (AUTO) 2.09 x10^3/uL (1-3.4); LYMPHOCYTES % (AUTO) 21 % (22-44); MD NO; MEAN CORPUSCULAR HEMOGLOBIN 31.1 pg (27.5-34.5); MEAN CORPUSCULAR HGB CONC 33.7 g/dL (33.2-36.2); MEAN CORPUSCULAR VOLUME 92.3 fL (81-97); MEAN PLATELET VOLUME 8.3 fL (7.4-10.4); MONOCYTES % (AUTO) 11 % (2-9); NEUTROPHILS # (AUTO) 6.43 x10^3/uL (1.8-6.8); NEUTROPHILS % (AUTO) 65 % (42-75); PLATELET COUNT 311 x10^3/uL (130-400); RED BLOOD COUNT 3.82 x10^6/uL (4.38-5.82); RED CELL DISTRIBUTION WIDTH 12.7 % (9.4-14.8)
[2018-03-20 05:20] LABS: ANION GAP 9 mmol/L (5-15); CHLORIDE 109 mmol/L (98-107); CREATININE 1.62 mg/dL (0.7-1.3)
[2018-03-20] MEDS: LEVOTHYROXINE 100 MCG TABLET PO SCH (05:50)
[2018-03-20 05:51] VITALS: BP 170/86
[2018-03-20 08:00] VITALS: BP 131/69
[2018-03-20] MEDS: ASPIRIN 81 MG TABLET EC PO SCH (08:52)
[2018-03-20] MEDS: NEBIVOLOL HCL 5 MG TABLET PO SCH (08:52)
[2018-03-20] MEDS: CEFTAZIDIME 1,000 MG in SODIUM CHLORIDE 0.9% 50 ML IVPB SCH (10:18)
[2018-03-20] MEDS ORDERED: PHEN100T90 PO (12:21)
[2018-03-20] MEDS ORDERED: CEFD300C37 PO (12:26)
[2018-03-20] MEDS: CLOPIDOGREL 75 MG TABLET PO SCH (13:17)
[2018-03-20 13:20] VITALS: BP 138/79
== END 2018-03-20 15:25 | disposition home or self-care (01) | DRG 689 ==
LOC: ED 07:46 → EDIP 08:40 → 3NW 10:41
PROVIDERS: ADMIT Hospitalist; ATTEND Hospitalist
DX: N13.6 Pyonephrosis (principal); I21.4 Non-ST elevation (NSTEMI) myocardial infarction; I12.9 Hypertensive chronic kidney disease with stage 1 through stage 4 chronic kidney disease, or unspecified chronic kidney disease; I25.5 Ischemic cardiomyopathy; I25.2 Old myocardial infarction; N32.0 Bladder-neck obstruction; Z87.891 Personal history of nicotine dependence; Z93.6 Other artificial openings of urinary tract status; E03.9 Hypothyroidism, unspecified; E78.5 Hyperlipidemia, unspecified; Z85.46 Personal history of malignant neoplasm of prostate; Z85.51 Personal history of malignant neoplasm of bladder; I25.10 Atherosclerotic heart disease of native coronary artery without angina pectoris; Z79.82 Long term (current) use of aspirin; Z79.899 Other long term (current) drug therapy; N18.9 Chronic kidney disease, unspecified; I73.9 Peripheral vascular disease, unspecified; Z82.3 Family history of stroke; Z95.5 Presence of coronary angioplasty implant and graft; Z90.49 Acquired absence of other specified parts of digestive tract; Z88.8 Allergy status to other drugs, medicaments and biological substances; Z91.041 Radiographic dye allergy status
CPT/HCPCS: 36415; 74018; 76770; 80048; 81001; 82040; 83735; 84100; 85025; 85610; 87086; 96374; 99285; G0378; J0713; J7030

== ENCOUNTER 2018-05-12 03:25 | Emergency (ER) | payer MEDICARE ==
[~2018-05-12] VITALS: Ht 175.3 cm; Wt 69.0 kg
[~2018-05-12 03:25] MED LIST changes: -ASPI-621 PO; +ASPI81TA45 PO; +CEFD300C37 PO; +PHEN100T90 PO
[2018-05-12 04:19] VITALS: BP 162/84
== END 2018-05-12 04:48 | disposition home or self-care (01) ==
LOC: ED 04:10
DX: I10 Essential (primary) hypertension (principal); R51 Headache; I25.2 Old myocardial infarction; I25.10 Atherosclerotic heart disease of native coronary artery without angina pectoris; I77.89 Other specified disorders of arteries and arterioles; Z87.438 Personal history of other diseases of male genital organs; Z90.89 Acquired absence of other organs
CPT/HCPCS: 99281; 99283

== ENCOUNTER 2018-07-25 14:48 | Inpatient (IN) | payer MEDICARE ==
[~2018-07-25] VITALS: Ht 175.3 cm; Wt 68.9 kg
[~2018-07-25 14:48] MED LIST changes: -CLON0.1T PO; +CLON0.1T22 PO
[2018-07-25 15:51] LABS: BASOPHILS # (AUTO) 0.05 x10^3/uL (0-0.1); BASOPHILS % (AUTO) 1 % (0-1); EOSINOPHILS # (AUTO) 0.27 x10^3/uL (0-0.4); EOSINOPHILS % (AUTO) 4 % (1-7); LYMPHOCYTES # (AUTO) 1.18 x10^3/uL (1-3.4); LYMPHOCYTES % (AUTO) 17 % (22-44); MD NO; MEAN CORPUSCULAR HEMOGLOBIN 31.6 pg (27.5-34.5); MEAN CORPUSCULAR HGB CONC 34.2 g/dL (33.2-36.2); MEAN CORPUSCULAR VOLUME 92.3 fL (81-97); MEAN PLATELET VOLUME 7.8 fL (7.4-10.4); MONOCYTES % (AUTO) 10 % (2-9); NEUTROPHILS # (AUTO) 4.86 x10^3/uL (1.8-6.8); NEUTROPHILS % (AUTO) 69 % (42-75); PLATELET COUNT 291 x10^3/uL (130-400); RED BLOOD COUNT 3.93 x10^6/uL (4.38-5.82); RED CELL DISTRIBUTION WIDTH 12.9 % (9.4-14.8)
[2018-07-25] MEDS ORDERED: SODIUM CHLORIDE FLUSH 10ML SYR IVF ONE (16:00)
[2018-07-25 16:02] LABS: ALBUMIN 3.3 g/dL (3.4-5.0); ANION GAP 6 mmol/L (5-15); CALCIUM 8.7 mg/dL (8.5-10.1); CHLORIDE 108 mmol/L (98-107); CREATININE 1.94 mg/dL (0.7-1.3)
[2018-07-25] MEDS ORDERED: ASPIRIN 81 MG TABLET CHEW PO ONE (16:30)
[2018-07-25] MEDS ORDERED: ASPIRIN 81 MG TABLET CHEW ONE (16:48)
[2018-07-25] MEDS ORDERED: ONDANSETRON ODT 4 MG PO PRN (17:30)
[2018-07-25] MEDS ORDERED: ONDANSETRON 2MG/ML, 2ML IVPush PRN (17:30)
[2018-07-25] MEDS ORDERED: ACETAMINOPHEN 325 MG TABLET PO PRN (17:30)
[2018-07-25] MEDS ORDERED: PHENAZOPYRIDINE 100 MG TABLET PO PRN (17:30)
--- NOTE | 2018-07-25 18:20 | NUR ---
SBAR TO KHALIDA BERRY VIA TELEPHONE
[2018-07-25 18:34] LABS: CULTURE INDICATED? YES; MICROSCOPIC INDICATED
[2018-07-25] MEDS ORDERED: HEPARIN 5,000 UNITS/ML, 1ML IV ONE (19:00)
[2018-07-25] MEDS ORDERED: HEPARIN 25,000 UNITS/500ML PMX 500 ML IV PRN ×2 (19:00→20:16)
[2018-07-25] MEDS ORDERED: HEPARIN 5,000 UNITS/ML, 1ML IV PRN (19:00)
[2018-07-25 19:07] VITALS: BP 172/92
[2018-07-25] MEDS: SODIUM CHLORIDE 0.9% 1,000 ML IV SCH (20:27)
[2018-07-25] MEDS ORDERED: hydrALAzine 20 MG/ML, 1ML IV PRN (20:30)
[2018-07-25] MEDS: NEBIVOLOL HCL 5 MG TABLET PO SCH (21:00)
[2018-07-25 22:05] VITALS: BP 133/76
[2018-07-25 22:52] VITALS: BP 148/87
[2018-07-26 00:16] VITALS: BP 149/78
[2018-07-26] MEDS ORDERED: LORazepam 0.5MG TABLET PO ONE (01:00)
[2018-07-26 03:03] LABS: BASOPHILS # (AUTO) 0.06 x10^3/uL (0-0.1); BASOPHILS % (AUTO) 1 % (0-1); EOSINOPHILS # (AUTO) 0.54 x10^3/uL (0-0.4); EOSINOPHILS % (AUTO) 6 % (1-7); LYMPHOCYTES % (AUTO) 31 % (22-44); MD NO; MEAN CORPUSCULAR HEMOGLOBIN 31.4 pg (27.5-34.5); MEAN CORPUSCULAR HGB CONC 33.9 g/dL (33.2-36.2); MEAN CORPUSCULAR VOLUME 92.5 fL (81-97); MEAN PLATELET VOLUME 8.1 fL (7.4-10.4); MONOCYTES # (AUTO) 0.78 x10^3/uL (0.2-0.8); MONOCYTES % (AUTO) 9 % (2-9); NEUTROPHILS # (AUTO) 4.71 x10^3/uL (1.8-6.8); NEUTROPHILS % (AUTO) 54 % (42-75); PLATELET COUNT 307 x10^3/uL (130-400); RED CELL DISTRIBUTION WIDTH 13.2 % (9.4-14.8)
[2018-07-26 03:14] LABS: ALANINE AMINOTRANSFERASE 21 U/L (12-78); ALBUMIN 3.2 g/dL (3.4-5.0); ANION GAP 7 mmol/L (5-15); CALCIUM 8.3 mg/dL (8.5-10.1); CHLORIDE 112 mmol/L (98-107); CREATININE 1.83 mg/dL (0.7-1.3)
[2018-07-26 03:22] LABS: ALKALINE PHOSPHATASE 310 U/L (45-117); BILIRUBIN,TOTAL 0.3 mg/dL (0.2-1.0); CHOL/HDL RATIO 3.3; CHOLESTEROL, TOTAL 156 mg/dL (140-239); HDL CHOL % 31 % (26-37); HDL CHOLESTEROL (DIRECT) 48 mg/dL (40-60); LDL CHOLESTEROL,CALCULATED 85 mg/dL (54-169); LDL/HDL RATIO 1.8 (0.5-3.0); TOTAL PROTEIN 7.3 g/dL (6.4-8.2); TRIGLYCERIDES 116 mg/dL (50-200); VLDL CHOLESTEROL 23 mg/dL (0-25)
[2018-07-26] MEDS ORDERED: LEVO100T5 PO (04:58)
[2018-07-26] MEDS: LEVOTHYROXINE 100 MCG TABLET PO SCH (05:32)
[2018-07-26] MEDS ORDERED: LEVOTHYROXINE 112 MCG TABLET PO SCH (06:00)
[2018-07-26] MEDS: SODIUM CHLORIDE 0.9% 1,000 ML IV SCH ×7 (07:21→21:37)
[2018-07-26 07:28] VITALS: BP 167/78
[2018-07-26] MEDS: NEBIVOLOL HCL 5 MG TABLET PO SCH ×2 (07:50→20:10)
[2018-07-26] MEDS: DIPHENHYDRAMINE 50 MG CAPSULE PO SCH ×2 (12:17→20:10)
[2018-07-26] MEDS: FAMOTIDINE 20 MG TABLET PO SCH ×2 (12:17→20:11)
[2018-07-26] MEDS ORDERED: HEPARIN 1,000 UNITS/ML, 10ML ONE (14:49)
[2018-07-26] MEDS ORDERED: FENTANYL PF 100 MCG/2ML ONE (14:49)
[2018-07-26] MEDS ORDERED: BIVALIRUDIN 250 MG ONE (14:49)
[2018-07-26] MEDS ORDERED: MIDAZOLAM 1 MG/ML, 5ML ONE (14:49)
[2018-07-26] MEDS ORDERED: VERAPAMIL 2.5 MG/ML, 2ML ONE (14:49)
[2018-07-26] MEDS ORDERED: LIDOCAINE-MPF 1%, 5ML ONE (14:50)
[2018-07-26 15:30] VITALS: BP 184/98
[2018-07-26 21:24] VITALS: BP 152/74
[2018-07-27] MEDS: SODIUM CHLORIDE 0.9% 1,000 ML IV SCH ×4 (00:20→08:44)
[2018-07-27 02:48] VITALS: BP 162/82
[2018-07-27] MEDS: LEVOTHYROXINE 100 MCG TABLET PO SCH (05:59)
[2018-07-27 08:00] LABS: BASOPHILS # (AUTO) 0.01 x10^3/uL (0-0.1); BASOPHILS % (AUTO) 0 % (0-1); EOSINOPHILS % (AUTO) 0 % (1-7); LYMPHOCYTES # (AUTO) 1.35 x10^3/uL (1-3.4); LYMPHOCYTES % (AUTO) 15 % (22-44); MD NO; MEAN CORPUSCULAR HEMOGLOBIN 30.7 pg (27.5-34.5); MEAN CORPUSCULAR HGB CONC 33.1 g/dL (33.2-36.2); MEAN CORPUSCULAR VOLUME 92.7 fL (81-97); MEAN PLATELET VOLUME 8.1 fL (7.4-10.4); MONOCYTES # (AUTO) 0.91 x10^3/uL (0.2-0.8); MONOCYTES % (AUTO) 10 % (2-9); NEUTROPHILS # (AUTO) 6.85 x10^3/uL (1.8-6.8); NEUTROPHILS % (AUTO) 75 % (42-75); PLATELET COUNT 269 x10^3/uL (130-400); RED BLOOD COUNT 3.57 x10^6/uL (4.38-5.82); RED CELL DISTRIBUTION WIDTH 12.8 % (9.4-14.8)
[2018-07-27 08:12] LABS: ALANINE AMINOTRANSFERASE 18 U/L (12-78); ALBUMIN 2.9 g/dL (3.4-5.0); ANION GAP 3 mmol/L (5-15); CALCIUM 8.1 mg/dL (8.5-10.1); CHLORIDE 114 mmol/L (98-107); CREATININE 1.68 mg/dL (0.7-1.3)
[2018-07-27 08:14] LABS: ALKALINE PHOSPHATASE 262 U/L (45-117); BILIRUBIN,TOTAL 0.4 mg/dL (0.2-1.0); TOTAL PROTEIN 6.5 g/dL (6.4-8.2)
[2018-07-27] MEDS: NEBIVOLOL HCL 5 MG TABLET PO SCH (08:44)
[2018-07-27 09:14] VITALS: BP 175/86
[2018-07-27] MEDS ORDERED: CLOP75TA PO (11:15)
== END 2018-07-27 12:19 | disposition home or self-care (01) | DRG 280 ==
LOC: ED 15:30 → EDIP 17:18 → 5SO 18:30 → DCLOUNGE 07-27 12:12
PROVIDERS: ADMIT Hospitalist; ATTEND Hospitalist
PROC: 4A023N7 Measurement of Cardiac Sampling and Pressure, Left Heart, Percutaneous Approach (ICD-10-PCS; principal; 2018-07-26)
PROC: B2111ZZ Fluoroscopy of Multiple Coronary Arteries using Low Osmolar Contrast (ICD-10-PCS; 2018-07-26)
PROC: B2151ZZ Fluoroscopy of Left Heart using Low Osmolar Contrast (ICD-10-PCS; 2018-07-26)
DX: I21.4 Non-ST elevation (NSTEMI) myocardial infarction (principal); I50.33 Acute on chronic diastolic (congestive) heart failure; I13.0 Hypertensive heart and chronic kidney disease with heart failure and stage 1 through stage 4 chronic kidney disease, or unspecified chronic kidney disease; J44.9 Chronic obstructive pulmonary disease, unspecified; E03.9 Hypothyroidism, unspecified; C67.9 Malignant neoplasm of bladder, unspecified; C61 Malignant neoplasm of prostate; E78.5 Hyperlipidemia, unspecified; R31.9 Hematuria, unspecified; I25.10 Atherosclerotic heart disease of native coronary artery without angina pectoris; I25.5 Ischemic cardiomyopathy; I25.2 Old myocardial infarction; N18.3 Chronic kidney disease, stage 3 (moderate); Z79.02 Long term (current) use of antithrombotics/antiplatelets; Z87.891 Personal history of nicotine dependence; Z95.5 Presence of coronary angioplasty implant and graft; Z90.49 Acquired absence of other specified parts of digestive tract; Z93.6 Other artificial openings of urinary tract status; Z88.8 Allergy status to other drugs, medicaments and biological substances; Z91.041 Radiographic dye allergy status; Z82.3 Family history of stroke; Z85.46 Personal history of malignant neoplasm of prostate; Z85.51 Personal history of malignant neoplasm of bladder
CPT/HCPCS: 0399T; 36415; 71046; 76770; 80048; 80053; 80061; 81001; 82040; 83735; 84100; 84443; 84484; 85025; 85520; 87086; 93005; 93306; 93458; 99156; 99285; C1769; C1894; G0378; J0583; J1644; J2250; J3010; J0360; J7030; J7512; Q9967

== ENCOUNTER 2018-08-20 18:33 | Emergency (ER) | payer MEDICARE ==
[~2018-08-20 18:33] MED LIST changes: +LEVO100T5 PO
--- NOTE | 2018-08-20 19:03 | NUR ---
[id number]
== END 2018-08-20 19:14 | disposition left against medical advice (07) ==
LOC: ED 19:08
DX: R19.8 Other specified symptoms and signs involving the digestive system and abdomen (principal); Z53.21 Procedure and treatment not carried out due to patient leaving prior to being seen by health care provider

== ENCOUNTER 2018-10-07 10:02 | Outpatient (CLI) | payer MEDICARE | END 2018-10-07 23:59 | disposition home or self-care (01) | LOC: PETCFH 10:02 | PROVIDERS: ATTEND Urology | DX: C61 Malignant neoplasm of prostate (principal); C79.51 Secondary malignant neoplasm of bone; K76.89 Other specified diseases of liver; D73.89 Other diseases of spleen; N28.1 Cyst of kidney, acquired; I71.4 Abdominal aortic aneurysm, without rupture | CPT/HCPCS: 74176; 78306; A9503 ==